=== PATIENT | male | born 1995 | race Caucasian/White ===

== ENCOUNTER 2017-12-01 10:49 | Emergency (ER) | payer OTHER | END 2017-12-01 12:55 | disposition home or self-care (01) | LOC: ER 12:55 | DX: S62.92XA Unspecified fracture of left hand, initial encounter for closed fracture (principal); X58.XXXA Exposure to other specified factors, initial encounter; Y93.67 Activity, basketball; Y92.89 Other specified places as the place of occurrence of the external cause; Y99.8 Other external cause status | CPT/HCPCS: 29125; 73130; 99284 ==

== ENCOUNTER 2018-08-09 01:37 | Emergency (ER) | payer OTHER ==
[~2018-08-09] VITALS: Ht 175.3 cm; Wt 72.6 kg
[~2018-08-09 01:37] MED LIST: HYDR-3164 PO
[2018-08-09 01:52] VITALS: BP 165/97
[2018-08-09] MEDS ORDERED: AMOX1TAB61 PO (02:06)
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
[2018-08-09] MEDS ORDERED: AMOXICILLIN/K CLAV 875/125MG TABLET. PO ONE (02:30)
== END 2018-08-09 02:31 | disposition home or self-care (01) ==
LOC: ER 01:37
DX: S61.552A Open bite of left wrist, initial encounter (principal); W50.3XXA Accidental bite by another person, initial encounter; Y93.89 Activity, other specified; Y92.89 Other specified places as the place of occurrence of the external cause; Y99.8 Other external cause status
CPT/HCPCS: 99283